=== PATIENT | female | born 1995 | race African-American/Black ===

== ENCOUNTER → 2022-07-11 | Outpatient (CLI) | payer OTHER | END | disposition short-term general hospital (02) | LOC: EMS 17:00 | DX: O99.891 Other specified diseases and conditions complicating pregnancy (principal); R10.30 Lower abdominal pain, unspecified | CPT/HCPCS: A0425; A0429 ==

== ENCOUNTER 2023-08-19 05:32 | Emergency (ER) | payer OTHER ==
[2023-08-19 05:58] VITALS: BP 90/67; O2SAT 100
--- NOTE | 2023-08-19 06:00 | ED Physician Documentation ---
History of Present Illness - Stated complaint Stated Complaint: CHEST PX/VOMITING - Chief complaint Chief Complaint: Cardiac - History obtained from History obtained from: Patient - Additonal information Additional information: 27-year-old woman previously healthy with no family history of cardiac disease presents with epigastric pain and nausea starting last night, with 2 episodes of vomiting in the early hours of this morning after waking at 2 AM with worsening acute pain. Patient denies fever, diarrhea, urinary symptoms, cough, hemoptysis, leg swelling, control, recent travel or bedrest. LMP 5 days ago PD PAST MEDICAL HISTORY - Past Medical History Past Medical History: No - Past Surgical History Past Surgical History: No - Present Medications Home Medications: Ambulatory Orders Medication Instructions Recorded Confirmed Famotidine [Pepcid] 20 mg PO BID PRN #30 tablet 08/19/23 Ondansetron Odt [Zofran Odt] 4 mg TL Q6H PRN #10 tablet 08/19/23 - Allergies Allergies/Adverse Reactions: Allergies Allergy/AdvReac Type Severity Reaction Status Date / Time No Known Drug Allergies Allergy Verified 08/19/23 05:52 - Social History Does the pt smoke?: No Smoking Status: Never smoker Does the pt drink ETOH?: No Does the pt have substance abuse?: No - Immunizations Immunizations are current?: Yes - POLST Patient has POLST: No PD ED PE NORMAL - Vitals Vital signs reviewed: Yes - General General: Alert and oriented X 3, No acute distress, Well developed/nourished, Other (anxious appearing) - HEENT HEENT: Atraumatic, PERRL, EOMI, Moist mucous membranes, Pharynx benign - Neck Neck: Supple, no meningeal sign - Cardiac Cardiac: RRR - Respiratory Respiratory: No respiratory distress, Clear bilaterally - Abdomen Abdomen: Non tender, Non distended - Derm Derm: Normal color, Warm and dry - Extremities Extremities: No deformity - Neuro Neuro: Alert and oriented X 3 Results - Vitals Vitals: Vital Signs - 24 hr 08/19/23 05:35 Temperature 36.4 C L Heart Rate 76 Respiratory 24 Rate Blood Pressure 90/67 O2 Saturation 100 Oxygen O2 Source Room air - Labs Labs: Laboratory Tests 08/19/23 08/19/23 05:47 05:47 WBC 4.4 L RBC 4.36 Hgb 11.6 L Hct 37.5 MCV 86.0 MCH 26.6 L MCHC 30.9 L RDW 14.6 Plt Count 284 MPV 9.9 Neut # (Auto) 2.1 Lymph # (Auto) 1.9 [place] # (Auto) 0.4 Eos # (Auto) 0.0 Baso # (Auto) 0.0 Absolute Nucleated RBC 0.00 Nucleated RBC % 0.0 Sodium 136 Potassium 3.2 L Chloride 103 Carbon Dioxide 24 Anion Gap 9.0 BUN 11 Creatinine 1.1 Estimated GFR (MDRD) 71 L Glucose 127 H Calcium 9.6 Total Bilirubin 0.3 AST 21 ALT 18 Alkaline Phosphatase 66 Total Protein 7.3 Albumin 4.4 Globulin 2.9 Albumin/Globulin Ratio 1.5 Lipase 107 H Beta HCG, Quant < 0.6 PD Medical Decision Making - ED course ED course: 27-year-old woman presents with epigastric pain, nausea and vomiting possibly related to , food poisoning, acute viral syndrome vs pancreatitis. Unlikely ACS given normal EKG and patient is completely without risk factors. Doubt PE given she has no pertinent risk factors or history pertaining to this. Plan to follow-up CBC, abdominal panel, reevaluate. Patient had improvement in pain status post 4 mg IV morphine and IV Pepcid. Normal saline was provided to replenish liquid losses from vomiting. Nausea improved status post Zofran. Lab work looks benign. Return precautions given. Plan to follow-up with primary care provider. Departure - Departure Disposition: 01 Home, Self Care Clinical Impression: Nausea and vomiting Condition: Stable Instructions: ED Nausea Vomiting Prescriptions: Famotidine [Pepcid] 20 mg PO BID PRN #30 tablet PRN Reason: Abdominal Pain Ondansetron Odt [Zofran Odt] 4 mg TL Q6H PRN #10 tablet PRN Reason: Nausea / Vomiting Comments: you were seen in the emergency department for chest pain and nausea, likely caused by stomach irritation. Your labwork looked okay except for anemia. Meds sent electronically to [facility]. Please follow-up with your primary care provider and return to the emergency department if you have any new or worsening symptoms or other concerns. Forms: PCP List
[2023-08-19 06:05] LABS: BASOPHILS % (AUTO) 0.7 %; EOSINOPHILS % (AUTO) 0.7 %; HCT - HEMATOCRIT 37.5 % (37.0-47.0); HGB - HEMOGLOBIN 11.6 g/dL (12.0-16.0); LYMPHOCYTES # (AUTO) 1.9 10^3/uL (1.5-3.5); LYMPHOCYTES % (AUTO) 41.9 %; MEAN CORPUSCULAR HEMOGLOBIN 26.6 pg (27.0-31.0); MEAN CORPUSCULAR HGB CONC 30.9 g/dL (32.0-36.0); MEAN PLATELET VOLUME 9.9 fL (7.9-10.8); MONOCYTES # (AUTO) 0.4 10^3/uL (0.0-1.0); MONOCYTES % (AUTO) 9.5 %; NEUTROPHILS # (AUTO) 2.1 10^3/uL (1.5-6.6); PLT - PLATELET COUNT 284 10^3/uL (130-450); RED BLOOD COUNT 4.36 10^6/uL (4.20-5.40); RED CELL DISTRIBUTION WIDTH 14.6 % (12.0-15.0); WHITE BLOOD COUNT 4.4 x10^3/uL (4.8-10.8)
[2023-08-19] MEDS ORDERED: ONDANSETRON 4 MG/2 ML VIAL ONE (06:05)
[2023-08-19] MEDS ORDERED: MORPHINE 2 MG/ML CARPUJECT ONE (06:05)
[2023-08-19] MEDS: MORPHINE 2 MG/ML CARPUJECT IVP STA (06:06)
[2023-08-19] MEDS: ONDANSETRON 4 MG/2 ML VIAL IVP STA (06:07)
[2023-08-19] MEDS: SODIUM CHLORIDE 0.9% 1,000 ML IV STA (06:07)
[2023-08-19] MEDS: FAMOTIDINE 20 MG/2 ML VIAL IVP STA (06:07)
[2023-08-19 06:25] LABS: ALBUMIN 4.4 g/dL (3.2-5.5); ALBUMIN/GLOBULIN RATIO 1.5 (1.0-2.2); ALKALINE PHOSPHATASE 66 IU/L (42-121); ALT ALANINE AMINOTRANSFERASE 18 IU/L (10-60); AST ASPARTATE AMINOTRANSFERASE 21 IU/L (10-42); BILIRUBIN,TOTAL 0.3 mg/dL (0.2-1.0); BUN - BLOOD UREA NITROGEN 11 mg/dL (6-20); CALCIUM 9.6 mg/dL (8.5-10.3); CARBON DIOXIDE - CO2 24 mmol/L (21-32); CHLORIDE 103 mmol/L (101-111); CREATININE 1.1 mg/dL (0.6-1.3); GFR - MDRD 71 (>89); GLUCOSE 127 mg/dL (74-104); LIPASE 107 U/L (11-82); POTASSIUM 3.2 mmol/L (3.5-4.5); SODIUM 136 mmol/L (135-145); TOTAL PROTEIN 7.3 g/dL (6.4-8.9)
[2023-08-19] MEDS: POTASSIUM CHLORIDE 20 MEQ/15 ML UDC PO STA (07:04)
--- NOTE | 2023-08-19 08:27 | XRAY Report ---
PROCEDURE: Chest 2V INDICATIONS: chest / epigastric pain, n/v TECHNIQUE: 2 views of the chest were acquired. COMPARISON: None. FINDINGS: Surgical changes and devices: None. Lungs and pleura: No pleural effusions or pneumothorax. Lungs are clear. Mediastinum: Mediastinal contours appear normal. Heart size is normal. Bones and chest wall: No suspicious bony lesions. Overlying soft tissues appear unremarkable. IMPRESSION: No acute cardiopulmonary process. Findings are concordant with preliminary interpretation provided by [facility]. Reviewed by: Daylin Wing MD, PhD on 08/19/2023 8:25 AM PDT Approved by: Daylin Wing MD, PhD on 08/19/2023 8:25 AM PDT Station ID: [id number]
== END 2023-08-19 07:10 | disposition home or self-care (01) ==
LOC: ED 05:32
DX: R11.2 Nausea with vomiting, unspecified (principal)
CPT/HCPCS: 36415; 71046; 80053; 83690; 84702; 85025; 93005; 96374; 96375; 99284; A9270